=== PATIENT | female | born 1990 | race Caucasian/White ===

== ENCOUNTER 2023-05-12 15:56 | Day surgery (SDC) | payer BC ==
[2023-05-12 16:49] VITALS: BMI 53.1
[2023-05-12] MEDS ORDERED: hydrALAZINE 20 MG/ML VIAL SLOW IVP PRN (17:08)
[2023-05-12 17:52] LABS: Protein, Urine Random Quant Less than 10 mg/dL (1-14)
[2023-05-12 17:56] LABS: #Eosinphils 0.1 10x3/uL (0.0-0.5); #Monocytes 0.8 10x3/uL (0.0-1.1); #Neutrophils 6.6 10x3/uL (1.5-8.4); %Basophils 0.2 % (0.0-2.0); %Eosinophils 0.5 % (0.0-6.0); %Lymphocytes 27.3 % (18.0-47.0); %Monocytes 7.5 % (0.0-10.0); %Neutrophils 63.6 % (40.0-75.0); Hematocrit 31.7 % (34.9-44.5); Hemoglobin 10.6 g/dL (12.0-15.5); Mean Corpuscular HGB CONC 33.4 g/dL (32.0-36.0); Mean Corpuscular Hemoglobin 29.9 pg (27.0-33.0); Mean Corpuscular Volume 89.5 fl (81.6-98.3); Mean Platelet Volume 10.6 fl (7.4-10.4); Platelet Count 222 10x3/uL (150-450); RBC Distribution Width 14.7 % (11.5-14.5); Red Blood Cell (RBC) Count 3.54 10x6/uL (3.90-5.03); White Blood Cell (WBC) Count 10.4 10x3/uL (3.5-10.5)
[2023-05-12 18:08] LABS: ALT (SGPT) 9 U/L (8-55); AST (SGOT) 16 U/L (5-34); Albumin 3.3 g/dL (3.5-5.0); Alkaline Phosphatase 90 U/L (40-110); Anion Gap 12 mmol/L (10-20); BUN (Urea Nitrogen) 7 mg/dL (7.0-18.7); Bilirubin, Total 0.7 mg/dL (0.2-1.2); Calc. Creatinine Clearance 284 mL/min (70-130); Calcium 9.2 mg/dL (7.8-10.44); Carbon Dioxide 21 mmol/L (22-29); Chloride 108 mmol/L (98-107); Estimated GFR 116; Glucose 133 mg/dL (70-105); Potassium 3.5 mmol/L (3.5-5.1); Protein, Total 6.3 g/dL (6.0-8.3); Sodium 137 mmol/L (136-145)
== END 2023-05-12 18:23 | disposition home or self-care (01) ==
LOC: CSHLD/OP 15:56
PROVIDERS: ATTEND Obstetrics & Gynecology
DX: O11.3 Pre-existing hypertension with pre-eclampsia, third trimester (principal); O10.913 Unspecified pre-existing hypertension complicating pregnancy, third trimester; O34.211 Maternal care for low transverse scar from previous cesarean delivery; Z91.018 Allergy to other foods; Z79.899 Other long term (current) drug therapy; Z3A.36 36 weeks gestation of pregnancy
CPT/HCPCS: 80053; 82570; 84156; 85025

== ENCOUNTER 2023-05-19 08:58 | Outpatient (CLI) | payer BC | END 2023-05-19 08:59 | disposition home or self-care (01) | LOC: CSHLAB 08:58 | PROVIDERS: ATTEND Obstetrics & Gynecology | DX: Z01.812 Encounter for preprocedural laboratory examination (principal); O34.219 Maternal care for unspecified type scar from previous cesarean delivery; Z53.9 Procedure and treatment not carried out, unspecified reason | CPT/HCPCS: 85014; 85018; 85049; 86780; 86850; 86900; 86901; 87340 ==

== ENCOUNTER 2023-05-20 05:26 | Inpatient (IN) | payer BC ==
[2023-05-19 10:39] LABS: Hematocrit 35.2 % (34.9-44.5); Hemoglobin 11.8 g/dL (12.0-15.5); Platelet Count 236 10x3/uL (150-450)
[2023-05-19 11:27] LABS: Syphilis Antibody Nonreactive (Nonreactive); Syphilis Antibody Index 0.03 S/CO (<1.00 Non-Reactive)
[2023-05-19 11:28] LABS: HBSAg Index 0.19 S/CO (0-0.99); Hep B Surf Ag Non-Reactive S/CO (NonReactive)
[2023-05-20 06:15] VITALS: BMI 53.6
[2023-05-20] MEDS ORDERED: fentaNYL 50 mcg/mL 1 mL Vial SLOW IVP PRN ×2 (06:29→07:33)
[2023-05-20] MEDS ORDERED: Ondansetron PF 4 MG/2 ML Vial IVP PRN ×4 (06:29→10:58)
[2023-05-20] MEDS ORDERED: Oxytocin 30 units/NS 500 ML 500 ML IV SCH ×2 (06:29→10:58)
[2023-05-20] MEDS ORDERED: Promethazine HCl 25 MG/ML VIAL IM PRN ×2 (06:29→07:33)
[2023-05-20] MEDS ORDERED: Lactated Ringer's 1,000 ML IV SCH (06:29)
[2023-05-20] MEDS ORDERED: CEFAZOLIN 2 GM in Sodium Chloride 0.9% 100 ML IVPB SCH (06:29)
[2023-05-20] MEDS ORDERED: Bicitra 30 ML UDCUP PO PRN (06:29)
[2023-05-20] MEDS ORDERED: hydrALAZINE 20 MG/ML VIAL SLOW IVP PRN ×2 (06:29→10:58)
[2023-05-20] MEDS ORDERED: Famotidine/PF 20 mg/2ml Vial SLOW IVP PRN (06:29)
[2023-05-20] MEDS ORDERED: Morphine PF 10 MG/10 ML VIAL ONE (06:55)
[2023-05-20] MEDS ORDERED: fentaNYL 50 mcg/mL 1 mL Vial ONE (06:55)
[2023-05-20] MEDS ORDERED: Ondansetron PF 4 MG/2 ML Vial ONE (06:56)
[2023-05-20] MEDS ORDERED: Dexamethasone 4 mg/ml Vial ONE (06:56)
[2023-05-20] MEDS ORDERED: Phenylephrine 10 MG/ML VIAL ONE (06:56)
[2023-05-20] MEDS ORDERED: Oxytocin 10 UNITS/ML VIAL ONE (06:57)
[2023-05-20] MEDS ORDERED: Promethazine HCl 25 MG SUPP PR PRN (07:33)
[2023-05-20] MEDS ORDERED: Moisturizing Cream (Eucerin) 113 GM JAR TOP PRN (07:33)
[2023-05-20] MEDS ORDERED: Ketorolac Tromethamine 30 MG/ML VIAL IVP PRN (07:33)
[2023-05-20] MEDS ORDERED: HYDROmorphone 0.5 MG/0.5 ML SYRINGE SLOW IVP PRN (07:33)
[2023-05-20] MEDS ORDERED: Meperidine HCl/PF 25 MG/ML VIAL SLOW IVP PRN (07:33)
[2023-05-20] MEDS ORDERED: Naloxone HCl 0.4 mg/ml Vial IVP PRN ×2 (07:33)
[2023-05-20] MEDS ORDERED: diphenhydrAMINE 50 MG/ML VIAL IVP PRN (07:33)
[2023-05-20] MEDS ORDERED: Naloxone HCl 0.4 mg/ml Vial IV PRN (07:33)
[2023-05-20] MEDS ORDERED: Communication Order-Pharmacy FS SCH (07:45)
[2023-05-20] MEDS ORDERED: Ketorolac Tromethamine 30 MG/ML VIAL IVP SCH (07:45)
[2023-05-20] MEDS ORDERED: CEFAZOLIN 1 GM VIAL ONE (08:14)
[2023-05-20] MEDS ORDERED: Carboprost 250 MCG/ML AMP ONE (08:17)
[2023-05-20] MEDS ORDERED: Methylergonovine 0.2 MG/ML VIAL ONE (08:17)
[2023-05-20] MEDS ORDERED: Boostrix 0.5 ML (Tdap) VIAL (>/=7 yrs of age) IM ONE (10:58)
[2023-05-20] MEDS ORDERED: Bisacodyl 10 MG SUPP PR PRN (10:58)
[2023-05-20] MEDS ORDERED: Lanolin Ointment 7 GM TUBE TOP PRN (10:58)
[2023-05-20] MEDS ORDERED: diphenhydrAMINE 25 MG CAP PO PRN (10:58)
[2023-05-20] MEDS ORDERED: HYDROcodone/Acetaminophen 5/325 mg Tablet PO PRN (10:58)
[2023-05-20] MEDS: Ibuprofen 800 MG TAB PO SCH ×2 (15:03→21:31)
[2023-05-20] MEDS: Ferrous Sulfate 325 MG TAB PO SCH (21:30)
[2023-05-20] MEDS: Docusate 100 MG CAP PO SCH (21:31)
[2023-05-21 03:52] LABS: Hematocrit 31.8 % (34.9-44.5); Hemoglobin 10.6 g/dL (12.0-15.5); Mean Corpuscular HGB CONC 33.3 g/dL (32.0-36.0); Mean Corpuscular Hemoglobin 29.9 pg (27.0-33.0); Mean Corpuscular Volume 89.6 fl (81.6-98.3); Mean Platelet Volume 11.1 fl (7.4-10.4); Platelet Count 224 10x3/uL (150-450); RBC Distribution Width 14.6 % (11.5-14.5); Red Blood Cell (RBC) Count 3.55 10x6/uL (3.90-5.03); White Blood Cell (WBC) Count 13.4 10x3/uL (3.5-10.5)
[2023-05-21] MEDS: Ibuprofen 800 MG TAB PO SCH ×3 (05:12→21:00)
[2023-05-21] MEDS: HYDROcodone/Acetaminophen 5/325 mg Tablet PO PRN ×3 (08:13→21:00)
[2023-05-21] MEDS: FLUoxetine HCl 20 MG CAP PO SCH (08:14)
[2023-05-21] MEDS: Labetalol HCl 100 MG TAB PO SCH ×2 (08:14→21:00)
[2023-05-21] MEDS: Simethicone Chewable 80 MG TAB PO PRN (08:14)
[2023-05-21] MEDS: Docusate 100 MG CAP PO SCH ×2 (08:14→21:00)
[2023-05-21] MEDS: Prenatal Vitamin 1 TAB PO SCH (08:14)
[2023-05-21] MEDS: Ferrous Sulfate 325 MG TAB PO SCH ×2 (09:32→21:00)
[2023-05-22] MEDS: Ibuprofen 800 MG TAB PO SCH (05:23)
[2023-05-22 07:37] VITALS: BP 129/67; TEMP 98.1
[2023-05-22] MEDS: Simethicone Chewable 80 MG TAB PO PRN (08:20)
[2023-05-22] MEDS: Docusate 100 MG CAP PO SCH (08:20)
[2023-05-22] MEDS: FLUoxetine HCl 20 MG CAP PO SCH (08:20)
[2023-05-22] MEDS: Labetalol HCl 100 MG TAB PO SCH (08:21)
[2023-05-22] MEDS: Prenatal Vitamin 1 TAB PO SCH (08:21)
[2023-05-22] MEDS: Ferrous Sulfate 325 MG TAB PO SCH (08:49)
[2023-05-22] MEDS ORDERED: Calcium Carbonate 500 MG ChewTAB PO PRN ×2 (10:56→10:57)
== END 2023-05-22 12:20 | disposition home or self-care (01) | DRG 788 ==
LOC: CSHLD 05:26 → CSHPP 11:20
PROVIDERS: ADMIT Obstetrics & Gynecology; ATTEND Obstetrics & Gynecology
PROC: 10D00Z1 Extraction of Products of Conception, Low, Open Approach (ICD-10-PCS; principal; 2023-05-20)
DX: O16.4 Unspecified maternal hypertension, complicating childbirth (principal); O99.214 Obesity complicating childbirth; O34.211 Maternal care for low transverse scar from previous cesarean delivery; Z3A.37 37 weeks gestation of pregnancy; Z37.0 Single live birth; E66.01 Morbid (severe) obesity due to excess calories
CPT/HCPCS: 36415; 51702; 85014; 85018; 85027; 85049; 86780; 86850; 86900; 86901; 87340; J0690; J1100; J2274; J2370; J2405; J2590; J3010; J3490; J7120

== ENCOUNTER 2023-12-08 08:15 | Outpatient (CLI) | payer BC | END 2023-12-08 08:16 | disposition home or self-care (01) | LOC: CSHRAD 08:15 | PROVIDERS: ATTEND Internal Medicine | DX: R17 Unspecified jaundice (principal); K80.20 Calculus of gallbladder without cholecystitis without obstruction | CPT/HCPCS: 76705 ==